=== PATIENT | female | born 1970 | race Caucasian/White ===

== ENCOUNTER → 2017-05-01 | Outpatient (CLI) | payer MEDICAID, SELFPAY | PROVIDERS: Visit Provider Obstetrics & Gynecology | DX: N93.8 Other specified abnormal uterine and vaginal bleeding (principal); D25.0 Submucous leiomyoma of uterus; Z01.812 Encounter for preprocedural laboratory examination | CPT/HCPCS: 36415; 80053; 81001; 84703; 85025 ==

== ENCOUNTER 2017-05-15 11:13 | Observation (INO) | payer MEDICAID, SELFPAY ==
[2017-05-14 13:33] VITALS: BMI 45.0
[2017-05-15] VITALS (27 sets, daily range): BP systolic 102–155; BP diastolic 64–83; PULSE 64–91; RESP 12–23; TEMP 36.6–37.2; O2SAT 95–100; BMI 19.9
--- NOTE | 2017-05-15 06:39 | P.PN_ITS ---
[facility] Anesthesia Checklist - Structural Data Admitted From: Home Planned Operative Procedure/s: [id number],bso Consent for Planned Operative Procedure(s) Verified: Yes Verified Documents: Surgical Consent - NPO Status Verified Time NPO: 12:00 - Chart Verification Results Verified: CBC, HCG - Additional verifications Patient : No Anesthesia Reactions: No - Airway Assessment C-Spine Mobility Assessed: Yes TMJ Mobility Assessed: Yes Dentition: Poor Dentition - Neurological Assessment Level of Consciousness: Awake, Alert Hx Seizures: No Numbness or tingling in extremities: No - Psychosocial Assessment Concerns Regarding Surgery: none - Anesthesia Plan Anesthesia Risk discussed: Yes Anesthesia Plan: Verified ASA Class: II Anesthesia Type: General [facility] Anesthesia HX I have reviewed the patient's past medical history: Yes Medical History: Reports:: Diabetes Mellitus Type 2 (NOT ON MEDS FOR THIS) Denies:: Diabetes Mellitus Type 1 Amputation: No Fractures: No *Family Hx:: Hypertension
[2017-05-15 06:47] LABS: Urine Pregnancy, HCG Qual. Negative (Negative)
--- NOTE | 2017-05-15 08:49 | HMH.ANESI ---
[facility] Anesthesia Record Part I Intake, IV Amount: 1,900 Estimated blood loss (mL): 250 Urine output (mL): 150 Blood Pressure: 152/83 SaO2: 98 Pulse Rate: 88 Respiratory Rate: 12 Temperature: 98 F Patient is:: Awake, Stable Stable to PACU at:: 08:45
--- NOTE | 2017-05-15 08:50 | HMH.ANESII ---
[facility] Anesthesia Record Part II Discharge Time: 09:15 Destination: floor PACU nurse assessment reviewed?: Yes Patient Condition:: Good Anesthesia Complications:: None
--- NOTE | 2017-05-15 08:51 | HMH.OPNOTE ---
Date of procedure: 05/15/17 Pre-op Diagnosis:: 1. Dysfunctional uterine bleeding. 2. Leiomyomata uteri. Post-op diagnosis:: same Procedure performed:: Total vaginal hysterectomy and bilateral salpingo-oophorectomy Surgeon:: Dmitry Whitlock MD Car Usher(s):: AMINTA De La Torre Motor Coach Operator:: OMAYRA Venegas Anesthesia: GETA Estimated blood loss (mL): 300 Operative findings:: 1. Dysfunctional uterine bleeding. 2. Leiomyomata uteri. Operative note:: After the patient was prepped and draped in usual fashion and general anesthesia was administered, examination under anesthesia revealed an enlarged anteverted uterus, with no adnexal masses A weighted speculum was placed within the posterior fourchette of the vagina, and the cervix was grasped with double-tooth tenaculum, and retracted to the introitus. The cervix was incised with a knife, and the vaginal mucosa was sharply and bluntly dissected free. A posterior colpotomy incision was made with Arie scissors, and the long lip of the weighted speculum was placed within the posterior peritoneum the uterosacral ligaments on either side with Howard clamp, cut, Howard suture with known Vicryl, as the cardinal ligaments and uterine vessels. The peritoneum was entered anteriorly with Arie scissors, and a long right angle retractor was placed within it. The uterus was flipped anteriorly, and the ovarian pedicles were crossclamped and cut, thus removing the boggy uterine specimen. These pedicles were Howard sutured, and then free tied with #1 Vicryl. Both adnexa appeared normal, but were to be removed by prior arrangement. Therefore, first the right tube and ovary, and then the left, were grasped with a Rosanne clamp, and the infundibulopelvic ligament on either side was any clamped, cut, and Howard sutured with #1 Vicryl, and then free tied with #1 Vicryl. All pedicles were inspected and felt to be hemostatic. The posterior vaginal cuff was run and locked with #1 Vicryl, to include the uterosacral ligament pedicles for vaginal support, and a Hernandez fashion, to reduce the enterocele. The anterior peritoneum was grasped with a long Allis clamp, and closed with a running pursestring suture of 0 Vicryl, and pulled tight. The vaginal cuff was closed with an anteroposterior running locked suture of #1 Vicryl. The urine was clear in the Major catheter. The sponge and needle counts correct. The estimated blood loss was 300 cc. The patient tolerated the procedure well, and was taken to PACU in excellent condition. Condition: stable Disposition: observation Specimens:: Uterus and both adnexa Complications:: None
--- NOTE | 2017-05-15 08:54 | P.OP_ITS ---
Date of procedure: 05/15/17 Pre-op Diagnosis:: 1. Dysfunctional uterine bleeding. 2. Leiomyomata uteri. Post-op diagnosis:: same Procedure performed:: Total vaginal hysterectomy and bilateral salpingo-oophorectomy Surgeon:: Dmitry Whitlock MD Room Manager(s):: AMINTA De La Torre Hydraulic Operator:: OMAYRA Venegas Anesthesia: GETA Estimated blood loss (mL): 300 Operative findings:: 1. Dysfunctional uterine bleeding. 2. Leiomyomata uteri. Operative note:: After the patient was prepped and draped in usual fashion and general anesthesia was administered, examination under anesthesia revealed an enlarged anteverted uterus, with no adnexal masses A weighted speculum was placed within the posterior fourchette of the vagina, and the cervix was grasped with double-tooth tenaculum, and retracted to the introitus. The cervix was incised with a knife, and the vaginal mucosa was sharply and bluntly dissected free. A posterior colpotomy incision was made with Arie scissors, and the long lip of the weighted speculum was placed within the posterior peritoneum the uterosacral ligaments on either side with Howard clamp, cut, Howard suture with known Vicryl, as the cardinal ligaments and uterine vessels. The peritoneum was entered anteriorly with Arie scissors, and a long right angle retractor was placed within it. The uterus was flipped anteriorly, and the ovarian pedicles were crossclamped and cut, thus removing the boggy uterine specimen. These pedicles were Howard sutured, and then free tied with #1 Vicryl. Both adnexa appeared normal, but were to be removed by prior arrangement. Therefore , first the right tube and ovary, and then the left, were grasped with a Rosanne clamp, and the infundibulopelvic ligament on either side was any clamped , cut, and Howard sutured with #1 Vicryl, and then free tied with #1 Vicryl. All pedicles were inspected and felt to be hemostatic. The posterior vaginal cuff was run and locked with #1 Vicryl, to include the uterosacral ligament pedicles for vaginal support, and a Hernandez fashion, to reduce the enterocele. The anterior peritoneum was grasped with a long Allis clamp, and closed with a running pursestring suture of 0 Vicryl, and pulled tight. The vaginal cuff was closed with an anteroposterior running locked suture of #1 Vicryl. The urine was clear in the Major catheter. The sponge and needle counts correct. The estimated blood loss was 300 cc. The patient tolerated the procedure well, and was taken to PACU in excellent condition. Condition: stable Disposition: observation Specimens:: Uterus and both adnexa Complications:: None
[2017-05-15 10:30] LABS: Hematocrit 39.2 % (37.0-47.0); Hemoglobin 13.2 g/dL (12.2-16.2)
--- NOTE | 2017-05-15 12:58 | HMH.ACPN ---
Internal Medicine - PN: Subj *Date: 05/15/17 *Time: 12:58 Interval history: This is day of surgery. The patient is afebrile. Vital signs stable. Abdomen soft. Surgeries been explained to the patient. Urine output is good. Impression: Stable. Exam Vital signs and Labs for Last 24 Hours: Temp Pulse Resp BP Pulse Ox 98.6 F 81 15 144/76 95 05/15/17 11:45 05/15/17 12:00 05/15/17 12:00 05/15/17 12:00 05/15/17 12:00 Short CBC 05/15/17 Range/Units 10:15 Hgb 13.2 (12.2-16.2) g/dL Hct 39.2 (37.0-47.0) % I & O for Last 24 hours: Intake & Output 05/13/17 05/14/17 05/15/17 05/16/17 11:59 11:59 11:59 11:59 Intake Total 1899 / 1899 Balance 1899 / 1899
[2017-05-15 15:33] LABS: Microscopic, Urine URINE MICROSCOPIC (MICROSCOPIC)
[2017-05-15 15:43] LABS: Appearance,Urine CLEAR (Clear); Bilirubin,Urine Negative (Negative); Blood, Urine TRACE-L (Negative); Color,Urine YELLOW (Yellow); Glucose,Urine (UA) Negative (Negative); Ketones,Urine Negative (Negative); Leukocyte Esterase,Urine Negative (Negative); Nitrate,Urine Negative (Negative); PH,Urine 5.5 (5.0-8.5); Protein,Urine Negative (Negative); Specific Gravity, Urine >= 1.030 (1.005-1.030); Urobilinogen,Urine 0.2 EU/dl (0.2)
--- NOTE | 2017-05-15 18:39 | PC.NURSE ---
Dr. Whitlock called, ok to discontinue mendoza cath at midnight no further orders
--- NOTE | 2017-05-15 19:10 | PC.NURSE ---
REPORT RECEIVED FROM James SELBY RN
[2017-05-15 19:40] LABS: RBC,Urine Occasional #/hpf (0-3); WBC,Urine Occasional #/hpf (0-3)
[2017-05-15 19:41] LABS: Bacteria,Urine 2+ /lpf
[2017-05-15 19:42] LABS: Uric Acid Crystals,Urine 2+ /lpf
--- NOTE | 2017-05-16 00:05 | PC.NURSE ---
LLAMAS CATHETER REMOVED AT THIS TIME PT TOLERATED WELL
[2017-05-16 04:45] VITALS: BP 141/80; PULSE 81; RESP 17; TEMP 38.1
--- NOTE | 2017-05-16 04:45 | PC.NURSE ---
Pt ambulated to bathroom at this time without difficulty. small amount of bleeding noted at this time. no needs voiced at this time no distress noted
--- NOTE | 2017-05-16 05:08 | PC.NURSE ---
Pt resting comfortably at this time. pt states pain better. lungs clear to auscultate. heart rate regular bs x 4, pt c/o some abdominal cramping no distention noted. no edema noted. minimal vaginal bleeding noted. no distress noted at this time no needs voiced will continue to monitor
[2017-05-16 06:17] VITALS: TEMP 37.6
--- NOTE | 2017-05-16 07:15 | PC.NURSE ---
REPORT GIVEN TO Bruce KELLER RN
--- NOTE | 2017-05-16 07:42 | HMH.ACPN ---
Internal Medicine - PN: Subj *Date: 05/16/17 *Time: 07:42 Interval history: This is postop day #1. The patient is afebrile, although she had a low-grade temp under 100 p.o. overnight. She is eating and ambulating and voiding well, with her Major out. Her abdomen is soft. She will be discharged today. Exam Vital signs and Labs for Last 24 Hours: Temp Pulse Resp BP Pulse Ox 99.6 F 81 17 141/80 98 05/16/17 06:17 05/16/17 04:45 05/16/17 04:45 05/16/17 04:45 05/15/17 20:45 Short CBC 05/15/17 Range/Units 10:15 Hgb 13.2 (12.2-16.2) g/dL Hct 39.2 (37.0-47.0) % Urine 05/15/17 Range/Units 07:20 Urine Color Yellow (Yellow) Urine Appearance Clear (Clear) Urine pH 5.5 (5.0-8.5) Ur Specific [place] >= 1.030 (1.005-1.030) Urine Protein Negative (Negative) Urine Glucose (UA) Negative (Negative) I & O for Last 24 hours: Intake & Output 05/13/17 05/14/17 05/15/17 05/16/17 11:59 11:59 11:59 11:59 Intake Total 2150 / 2150 2400 / 2400 Output Total 2750 / 2750 Balance 2150 / 2150 -350 / -350
--- NOTE | 2017-05-16 07:50 | P.DS_ITS ---
General - General Admission date: 05/15/17 Discharge date: 05/16/17 Objective Vital signs: Temp Pulse Resp BP Pulse Ox 99.6 F 81 17 141/80 98 05/16/17 06:17 05/16/17 04:45 05/16/17 04:45 05/16/17 04:45 05/15/17 20:45 Hospital Course Hospital Course: This 46-year-old white female was admitted for definitive treatment of dysfunctional uterine bleeding and uterine leiomyomata. On the date of admission, she was taken to the operating room, where she underwent a total vaginal hysterectomy and bilateral salpingo-oophorectomy under general anesthesia, without complications. Postoperatively, the patient is doing well. She is eating and ambulating. Major has been removed, and she is voiding well. She had a low-grade fever of under 100 overnight, but that is now resolved. Her abdomen is soft. She is discharged home on the first postoperative day on Toradol 10 mg p.o. q. 6 age as needed pain (#20). She is given appropriate instructions as to diet and exercise, and she is to return the office in 2 weeks for follow-up. She received Delestrogen 30 mg IM in PACU. She is a smoker, but refuses smoking cessation patches. Results Labs on day of discharge: Labs from last 24 hours 05/15/17 05/15/17 10:15 07:20 Hgb 13.2 Hct 39.2 Urine Color Yellow Urine Appearance Clear Urine pH 5.5 Ur Specific [place] >= 1.030 Urine Protein Negative Urine Glucose (UA) Negative Urine Ketones Negative Urine Blood Trace-l Urine Nitrate Negative Urine Bilirubin Negative Urine Urobilinogen 0.2 Ur Leukocyte Esterase Negative Urine RBC Occasional Urine WBC Occasional Ur Squamous Epith Cells 10-20 Uric Acid Crystals 2+ Urine Bacteria 2+ Meds Home Medications Medication Instructions Recorded Confirmed Type No Known Home Medications [No 05/13/17 05/13/17 History Known Home Medications] Allergies Allergy/AdvReac Type Severity Reaction Status Date / Time No Known Allergies Allergy Verified 05/13/17 13:50 Disposition Disposition: Home, Self-Care
[2017-05-16 07:58] VITALS: BP 115/62; PULSE 83; RESP 20; TEMP 37.4; O2SAT 99
--- NOTE | 2017-05-16 07:58 | PC.NURSE ---
NEELAM SCUDS OFF AT THIS TIME. PT HAS BEEN AMBULATING TO BATHROOM.
--- NOTE | 2017-05-16 07:58 | HMH.PHAVTE ---
[facility] Pharmacy VTE Monitoring - Patient Demographics Admission date: 05/15/17 Report Date: 05/16/17 Time: 07:58 Allergies/Adverse Reactions: No Known Allergies Allergy (Verified 05/13/17 13:50) Height: 1.63 m Weight: 52.617 kg - VTE Risk Labs: VTE Related Lab Results Hgb 13.2 g/dL (12.2-16.2) 05/15/17 10:15 Hct 39.2 % (37.0-47.0) 05/15/17 10:15 Clinical Trial Participant: No - Prophylaxis Types of VTE Prophylaxis: IPCS Knee High, Pharmacological Location of Applied Device: Bilateral Lower Extremeties Pharmacologic Type: Enoxaparin
--- NOTE | 2017-05-16 09:15 | PC.NURSE ---
PT SITTING UP IN BED. NO NEEDS VOICED. PT DENIES ANY PAIN AT THIS TIME. PT GETTING READY FOR DISCHARGE. CALL LIGHT IN REACH.
== END 2017-05-16 09:55 | disposition home or self-care (01) ==
LOC: OB 05-16 07:54
PROVIDERS: Admitting Provider Obstetrics & Gynecology; Visit Provider Obstetrics & Gynecology
PROC: (CPT 58262; principal; 2017-05-15 07:30)
DX: N93.8 Other specified abnormal uterine and vaginal bleeding (principal); D25.9 Leiomyoma of uterus, unspecified
CPT/HCPCS: 58262; 81001; 81025; 85014; 85018; 87086; 90686; 96372; 96374; 96375; G0378; J2405

== ENCOUNTER 2017-06-20 09:33 | Emergency (ER) | payer MEDICAID, SELFPAY ==
[2017-06-20 09:55] VITALS: BP 117/73; PULSE 69; RESP 18; TEMP 36.9; O2SAT 100
--- NOTE | 2017-06-20 10:09 | HMH.EDUTC ---
[facility] Disposition Clinical Impression: Vertigo Disposition: Home, Self-Care Condition on Discharge: Good Instructions: Vertigo, DI for Vertigo, Meclizine Additional Instructions: Take medication as prescribed Follow up with family doctor to continue medication if needed Return if needed Make slow easy movements until vertigo no longer present If you began to have dizziness that does not improve or worsens go straight to ER Prescriptions: Meclizine HCl [Meclizine 25mg Tab] 25 mg PO BID #30 tab Time of Disposition: 10:46 Medical Decision Making - Medical Records Medical records reviewed: Yes: I reviewed the patient's medical records. Vital Signs: 06/20/17 09:55 Temperature 98.4 F Temperature Source Temporal Artery Scan Pulse Rate [Right] 69 Respiratory Rate 18 Blood Pressure [Right Arm] 117/73 Blood Pressure Mean [Right Arm] 87 Blood Pressure Source [Right Arm] Automatic Cuff Blood Pressure Position [Right Arm] Sitting 02 Sat by Pulse Oximetry 100 Oxygen Delivery Method Room Air Orders (Tests/Meds): ED MEDICATIONS Discontinued Medications Generic Name Dose Route Start Last Admin Trade Name Ren PRN Reason Stop Dose Admin Meclizine HCl 25 mg 06/20/17 10:12 06/20/17 10:27 Antivert 25mg Tablet PO 06/20/17 10:13 25 mg ONCE ONE Administration - Pradip Inquiry Pt receiving controlled substance: No Pradip was queried for this patient: No - Reevaluation(s) Time: 10:38 Reevaluation #1: Patient state that she is feeling much better and medication helped with dizziness State that dizziness almost gone [facility] HPI - General Stated complaint: dizzy spells Mode of Arrival: Ambulatory Source of Information: Patient Limitations: No Limitations Description of Symptoms (Recalled from Triage Doc. by RN): STATES DIZZY SPELLS X2 DAYS HEENT Symptoms (Recalled from RN notes): Yes Resp Symptoms (Recalled from RN notes): No Skin Symptoms (Recalled from RN notes): No MS Symptoms (Recalled from RN notes): No Functional Status (Recalled from RN notes): N - History of Present Illness Provider Complaint: Patient state that for that last couple of days when she stands quickly or moves quickly she feels dizzy States that this morning she bent over and felt dizzy State that she has been having some sinus congestion but not sure if that may be related State that she feels like the room is spinning around her when it happens - Related Data Home Medications Medication Instructions Recorded Confirmed Ketorolac Tromethamine [Toradol 10 mg PO Q6H 05/16/17 05/16/17 10mg tablet] Previous Rx's Medication Instructions Recorded estradiol 2 mg tablet 2 mg PO QDAY #30 tab 05/29/17 Meclizine HCl [Meclizine 25mg Tab] 25 mg PO BID #30 tab 06/20/17 Allergies Allergy/AdvReac Type Severity Reaction Status Date / Time No Known Allergies Allergy Verified 06/12/17 09:22 - Worker's Comp Is this a Worker's Comp case?: No [facility] History I have reviewed the patient's past medical history: Yes Medical History: Reports:: Diabetes Mellitus Type 2 Denies:: Diabetes Mellitus Type 1, Seizures Other Surgeries: Yes: Other Amputation: No Fractures: No - *Social History Smoking Status: Current every day smoker Tobacco Type: cigarettes # Packs/Day (cigarettes): 1 #Yrs smoked (if former smoker): 16 Alcohol Intake: never Substance Use Type: denies use Occupational Status: employed Housing: house Household Members: other - Psychiatric History Expresses thoughts of harming self/others: None Suicide Plan Description: No Plan *Family Hx:: Hypertension, Diabetes ROS Obtained: Yes All systems reviewed & no additional complaints - ENT Ears, Nose, Mouth, and Throat: Reports dizziness Physical Exam - General General appearance: alert, in no apparent distress - Expanded ENT Exam Nose exam: Present: other (nasal congestion with mild fluid noted left ear) - Respiratory Respiratory ex
--- NOTE | 2017-06-20 10:12 | ED_ITS ---
[facility] Disposition Clinical Impression: Vertigo Disposition: Home, Self-Care Condition on Discharge: Good Instructions: Vertigo, DI for Vertigo, Meclizine Additional Instructions: Take medication as prescribed Follow up with family doctor to continue medication if needed Return if needed Make slow easy movements until vertigo no longer present If you began to have dizziness that does not improve or worsens go straight to ER Prescriptions: Meclizine HCl [Meclizine 25mg Tab] 25 mg PO BID #30 tab Time of Disposition: 10:46 Medical Decision Making - Medical Records Medical records reviewed: Yes: I reviewed the patient's medical records. Vital Signs: 06/20/17 09:55 Temperature 98.4 F Temperature Source Temporal Artery Scan Pulse Rate [Right] 69 Respiratory Rate 18 Blood Pressure [Right Arm] 117/73 Blood Pressure Mean [Right Arm] 87 Blood Pressure Source [Right Arm] Automatic Cuff Blood Pressure Position [Right Arm] Sitting 02 Sat by Pulse Oximetry 100 Oxygen Delivery Method Room Air Orders (Tests/Meds): ED MEDICATIONS Discontinued Medications Generic Name Dose Route Start Last Admin Trade Name Ren PRN Reason Stop Dose Admin Meclizine HCl 25 mg 06/20/17 10:12 06/20/17 10:27 Antivert 25mg Tablet PO 06/20/17 10:13 25 mg ONCE ONE Administration - Pradip Inquiry Pt receiving controlled substance: No Pradip was queried for this patient: No - Reevaluation(s) Time: 10:38 Reevaluation #1: Patient state that she is feeling much better and medication helped with dizziness State that dizziness almost gone [facility] HPI - General Stated complaint: dizzy spells Mode of Arrival: Ambulatory Source of Information: Patient Limitations: No Limitations Description of Symptoms (Recalled from Triage Doc. by RN): STATES DIZZY SPELLS X2 DAYS HEENT Symptoms (Recalled from RN notes): Yes Resp Symptoms (Recalled from RN notes): No Skin Symptoms (Recalled from RN notes): No MS Symptoms (Recalled from RN notes): No Functional Status (Recalled from RN notes): N - History of Present Illness Provider Complaint: Patient state that for that last couple of days when she stands quickly or moves quickly she feels dizzy States that this morning she bent over and felt dizzy State that she has been having some sinus congestion but not sure if that may be related State that she feels like the room is spinning around her when it happens - Related Data Home Medications Medication Instructions Recorded Confirmed Ketorolac Tromethamine [Toradol 10 mg PO Q6H 05/16/17 05/16/17 10mg tablet] Previous Rx's Medication Instructions Recorded estradiol 2 mg tablet 2 mg PO QDAY #30 tab 05/29/17 Meclizine HCl [Meclizine 25mg Tab] 25 mg PO BID #30 tab 06/20/17 Allergies Allergy/AdvReac Type Severity Reaction Status Date / Time No Known Allergies Allergy Verified 06/12/17 09:22 - Worker's Comp Is this a Worker's Comp case?: No H History I have reviewed the patient's past medical history: Yes Medical History: Reports:: Diabetes Mellitus Type 2 Denies:: Diabetes Mellitus Type 1, Seizures Other Surgeries: Yes: Other Amputation: No Fractures: No - *Social History Smoking Status: C
[2017-06-20 10:53] VITALS: BP 110/62; PULSE 60; RESP 16; TEMP 36.2
== END 2017-06-20 10:54 | disposition home or self-care (01) ==
PROVIDERS: Emergency Provider Nurse Practitioner
DX: R42 Dizziness and giddiness (principal)
CPT/HCPCS: 99201

== ENCOUNTER → 2017-06-26 09:47 | Outpatient (REF) | payer MEDICAID, SELFPAY ==
[2017-06-26 14:27] LABS: Alanine Aminotransferase 21 U/L (12-78); Albumin Level 3.7 gm/dL (3.4-5.0); Albumin/Globulin Ratio 1.2 (1.1-1.8); Alkaline Phosphatase 81 U/L (46-116); Anion Gap 12.9 mEq/L (5-15); Aspartate Amino Transferase 11 U/L (15-37); Bilirubin,Total 0.4 mg/dL (0.2-1.0); Blood Urea Nitrogen 14 mg/dL (7-18); Calcium 8.9 mg/dL (8.5-10.1); Carbon Dioxide 27 mmol/L (21.0-32.0); Chloride 106 mmol/L (98-107); Chol/HDL Ratio 2.9 (1-3.5); Cholesterol 171 mg/dL (140-200); Estimated Glomerular Filt Rate 108 ml/min (>60); Free T4 (Free Thyroxine) 1.04 ng/dl (0.76-1.46); GFR (African American) 130 ML/MIN (>60); Globulin 3.2 gm/dl (1.3-3.2); Glucose 91 mg/dL (74-106); HDL Cholesterol 59 mg/dL (29-89); LDL Cholesterol 94 mg/dL (0-130); Potassium 4.9 mmoL/L (3.5-5.1); Sodium 141 mmol/L (136-145); Thyroid Stimulating Hormone 1.99 uIU/ml (0.358-3.740); Total Protein,Serum 6.9 gm/dL (6.4-8.2); Triglycerides 92 mg/dL (30-200); VLDL Cholesterol 18 mg/dL (0-40)
[2017-06-26 16:45] LABS: Basophils % 0.5 % (0.1-2.0); Eosinophils # 0.2 K/mm3 (0.0-0.4); Eosinophils % 2.8 % (0.1-12.0); Hematocrit 43.6 % (37.0-47.0); Hemoglobin 14.9 g/dL (12.2-16.2); Lymphocytes # 1.4 K/mm3 (0.7-4.5); Lymphocytes % 24.2 K/mm3 (10-50); Mean Corpuscular HGB Conc 34.3 g/dL (31.8-35.4); Mean Corpuscular Hemoglobin 31.3 pg (27.0-31.2); Mean Corpuscular Volume 91.3 fl (81-99); Mean Platelet Volume 8.7 fl (7.4-10.4); Monocytes # 0.5 K/mm3 (0.1-1.0); Monocytes % 7.9 % (1.7-9.3); Neutrophils # 3.7 K/mm3 (1.8-7.8); Neutrophils % 64.7 % (37.0-80.0); Platelet Count 225 K/mm3 (142-424); Red Blood Count 4.77 M/mm3 (4.20-5.40); Red Cell Distribution Width 13.2 % (11.5-17.5); White Blood Count 5.7 K/mm3 (4.8-10.8)
[2017-06-26 17:19] LABS: Hemoglobin A1C 5.3 % (0.0-7.0)
[2017-06-27 12:15] LABS: Vitamin D 25 Hydroxy 13.7 ng/mL (30.0-100.0)
== END ==
LOC: LAB 09:47
PROVIDERS: Visit Provider Nurse Practitioner Family
DX: R53.83 Other fatigue (principal); Z79.899 Other long term (current) drug therapy
CPT/HCPCS: 80053; 80061; 82652; 83036; 84439; 84443; 85025

== ENCOUNTER → 2018-02-27 09:10 | Outpatient (REF) | payer MEDICAID, SELFPAY ==
[2018-02-27 14:31] LABS: T4 (Thyroxine) 9.5 ug/dl (4.7-13.3); Thyroid Stimulating Hormone 1.93 uIU/ml (0.358-3.740)
[2018-02-27 15:08] LABS: Hemoglobin A1C 5.9 % (0.0-7.0)
[2018-02-28 10:21] LABS: Vitamin D 25 Hydroxy 58.7 ng/mL (30.0-100.0)
== END ==
LOC: LAB 09:10
PROVIDERS: PCP Nurse Practitioner Family; Visit Provider Nurse Practitioner Family
DX: E16.2 Hypoglycemia, unspecified (principal); E55.9 Vitamin D deficiency, unspecified
CPT/HCPCS: 82652; 83036; 84436; 84443